=== PATIENT | female | born 1945 | race Caucasian/White ===

== ENCOUNTER 2023-03-21 14:55 | Outpatient (CLI) | payer MEDICARE, OTHER | END 2023-03-21 14:56 | disposition home or self-care (01) | LOC: BICRAD 14:55 | PROVIDERS: ATTEND Podiatrist | DX: M21.42 Flat foot [pes planus] (acquired), left foot (principal); M79.672 Pain in left foot; M19.072 Primary osteoarthritis, left ankle and foot ==